=== PATIENT | female | born 1970 | race Caucasian/White ===

== ENCOUNTER 2017-03-19 19:43 | Emergency (ER) | payer MEDICAID, OTHER ==
[2017-03-19] MEDS ORDERED: SULFAMETHOXAZOLE 800 MG/TRIMETHOPRIM 160 MG TABLET ONE (20:55)
== END 2017-03-19 21:05 | disposition home or self-care (01) ==
LOC: ED 19:43
DX: L03.011 Cellulitis of right finger (principal); F17.210 Nicotine dependence, cigarettes, uncomplicated